=== PATIENT | male | born 1960 | race Caucasian/White ===

== ENCOUNTER 2021-03-23 16:25 | Emergency (ER) | payer OTHER ==
[~2021-03-23] VITALS: Ht 182.9 cm; Wt 70.3 kg
[2021-03-23 17:18] LABS: ABSOLUTE NEUTROPHILS 7.3 thou/uL (1.4-8.2); BASOPHILS 0.5 % (0.0-2.0); EOSINOPHILS 0.5 % (0.0-3.0); HEMATOCRIT 46.3 % (42.0-52.0); LYMPHOCYTES 19.6 % (24.0-44.0); MCH 34.2 pg (26.0-34.0); MCHC 34.6 g/dL (28.0-37.0); MCV 98.9 fL (80.0-100.0); MONOCYTES 4.5 % (1.0-8.0); PLATELET COUNT 246 thou/uL (150-400); POLYS 74.9 % (36.0-66.0); RBC 4.69 mil/uL (4.50-6.00); RDW 12.8 % (10.5-14.5); WBC 9.8 thou/uL (4.0-11.0)
[2021-03-23 17:27] LABS: CALCIUM 8.9 mg/dL (8.5-10.1); POTASSIUM 4.6 mmol/L (3.5-5.1)
[2021-03-23 17:33] LABS: ALBUMIN 3.9 g/dL (3.4-5.0); TOTAL BILIRUBIN 0.9 mg/dL (0.2-1.0); TOTAL PROTEIN 7.9 g/dL (6.4-8.2)
[2021-03-23] MEDS ORDERED: AMOXICILLIN500 M1 PO (18:38)
[2021-03-23] MEDS ORDERED: BACTRIM DS TAB1 EACH PO (18:38)
[2021-03-23 18:52] VITALS: BP 119/70
== END 2021-03-23 18:53 ==
LOC: ER 16:25
PROVIDERS: Nurse Practitioner
DX: L03.213 Periorbital cellulitis (principal); I11.0 Hypertensive heart disease with heart failure; I50.9 Heart failure, unspecified; J44.9 Chronic obstructive pulmonary disease, unspecified

== ENCOUNTER 2021-07-30 07:18 | Emergency (ER) | payer OTHER ==
[~2021-07-30] VITALS: Ht 182.9 cm; Wt 68.0 kg
--- NOTE | ~2021-07-30 | EMS ---
[facility] [address] [place] [address] EMS Patient Care Report Name: MONA WESLEY Room #: DEP KARMEN Larios#: [id number] Admission: 07/30/21 Attend Phys: Discharge: 07/30/21 Date of : 62 Report #: [id number] THIS REPORT FOR: //name// Report Transmitted: 08/01/2021 08:09 EMS Care Summary [place], [place]/[facility] Incident [id number] @ 07/30/2021 06:41 Incident Location [address] [place] [id number] Patient QIAN WESLEY Male, 60 Years 1960 Patient Address [address] [place], [place] [id number] Patient History Congestive Heart Failure (CHF),Chronic Obstructive Pulmonary Disease (COPD),Hypertension (HTN),Gastric Ulcer,IV Drug Use/Abuse,Depression,Anxiety,Post Traumatic Stress Disorder (PTSD),Enlarged prostate, Patient Allergies No known allergies, Patient Medications Other, Chief Complaint I feel weak, dizzy and nauseated Disposition Transported No Lights/[place] Dispatch Reason Sick Person Transported To [facility] Narrative Called to the bus stop. Upon arrival, pt was LUGO x 3 sitting at the bus stop [facility] [address] [place] [address] EMS Patient Care Report Name: MONA WESLEY Room #: DEP Ric#: [id number] Admission: 07/30/21 Attend Phys: Discharge: 07/30/21 Date of : 62 Report #: [id number] c/o weak, dizzy, nausea and SOB w/exertion. He said he was going to take the bus to the hospital but didn't think he could make it. He was moved to the EMS cot and loaded into the ambulance w/o incident. Vitals obtained. 4 & 12 lead obtained. 18g IV SL. D-stick. Vitals repeated. En route; no significant changes. RR to the ER. Arrived: pt taken to ER and moved to their bed w/o incident. Pt care & report to ER staff. Initial Vitals @06:51P: 100,R: 16,BP: 137/78,Pain: 0/10,GCS: 15,CO: 6,SpO2: 96,Revised Trauma: 12, @06:56P: 85,IN Suspected: false @07:04P: 87,R: 16,BP: 138/82,Pain: 0/10,GCS: 15,Glucose: 83,CO: 8,SpO2: 98,Revised Trauma: 12,IN Suspected: false Assessments @06:47MENTAL:Person Oriented,Event Oriented,Time Oriented,Place Oriented,SKIN:HEENT:LUNG SOUNDS:General: Nausea,ABDOMEN:General: Nausea,PELVIS//GI:EXTREMITIES:Left Arm: No Abnormalities,Right Arm: No Abnormalities,Left Leg: No Abnormalities,Right Leg: No Abnormalities,PULSE:Radial: 2+ Normal,NEURO:No Abnormalities, Impression Acute Respiratory Distress (Dyspnea) Procedures @06:5612-Lead ECGResponse: UnchangedSucceeded@06:50StretcherResponse: Unchanged@06:553-Lead ECGResponse: UnchangedSucceeded@06:59Saline Lock 8cc (18 ga) Site: Forearm-LeftResponse: UnchangedSucceeded@06:48ALS AssessmentResponse: UnchangedSucceeded@06:57Saline Lock cc (18 ga) Site: Antecubital-LeftResponse: UnchangedFailed Timeline 06:40,Call Received 06:40,Dispatch Notified 06:41,Dispatched 06:43,En Route 06:46,On Scene 06:47,At Patient 06:48,ALS Assessment,Response: UnchangedSucceeded, 06:50,Stretcher,Response: Unchanged 06:51,BP: 137/78 M,PULSE: 100,RR: 16 R,SPO2: 96 Ox,ETCO2: ,BG: ,PAIN: 0,GCS: 15, 06:55,3-Lead ECG,Response: UnchangedSucceeded, 06:56,12-Lead ECG,Response: UnchangedSucceeded, 06:56,BP: / M,PULSE: 85,RR: R,SPO2: Ox,ETCO2: ,BG: ,PAIN: ,GCS: , 06:57,Saline Lock cc 18 ga Site: Antecubital-Left,Response: UnchangedFailed, [facility] [address] [place] [address] EMS Patient Care Report Name: MONA WESLEY Room #: DEP KARMEN Larios#: [id number] Admission: 07/30/21 Attend Phys: Discharge: 07/30/21 Date of : 62 Report #: [id number] 06:59,Saline Lock 8cc 18 ga Site: Forearm-Left,Response: UnchangedSucceeded, 07:04,BP: 138/82 M,PULSE: 87,RR: 16 R,SPO2: 98 Ox,ETCO2: ,B,PAIN: 0,GCS: 15, 07:14,Depart Scene 07:14,At Destination 07:29,Call Closed Disclaimer v1.1 Copyright 2020 [employer] This EMS Care Summary contains data elements from the applicable legal record (which may be displayed differently). It is designed to provide pertinent information for the following purposes: continuity of care, clinical quality, and state data reporting. The complete legal record is available to ED staff and administrators of the receiving hospital in [facility]'s Patient Tracker. All data is provided "as is."
[~2021-07-30 07:18] MED LIST: AMOXICILLIN500 M1 PO; BACTRIM DS TAB1 EACH PO
[2021-07-30 08:27] LABS: ABSOLUTE NEUTROPHILS 3.6 thou/uL (1.4-8.2); BASOPHILS 0.7 % (0.0-2.0); EOSINOPHILS 4.9 % (0.0-3.0); HEMATOCRIT 39.8 % (42.0-52.0); HEMOGLOBIN 13.1 gm/dL (14.0-18.0); MCH 33.6 pg (26.0-34.0); MCHC 32.9 g/dL (28.0-37.0); MCV 102.1 fL (80.0-100.0); MONOCYTES 6.5 % (1.0-8.0); PLATELET COUNT 236 thou/uL (150-400); POLYS 52.9 % (36.0-66.0); RDW 13.3 % (10.5-14.5); WBC 6.8 thou/uL (4.0-11.0)
[2021-07-30 08:54] LABS: ALBUMIN 3.3 g/dL (3.4-5.0); ANION GAP 8 mmol/L (7-16); BUN 15 mg/dL (7-18); CALCIUM 8.7 mg/dL (8.5-10.1); CHLORIDE 112 mmol/L (98-107); CO2 29 mmol/L (21-32); CREATININE 0.9 mg/dL (0.7-1.3); DIRECT BILIRUBIN < 0.1 mg/dL (<0.1-0.2); GLUCOSE 80 mg/dL (74-106); LIPASE 140 U/L (73-393); POTASSIUM 3.8 mmol/L (3.5-5.1); SGOT 23 U/L (15-37); SGPT 25 U/L (16-63); SODIUM 149 mmol/L (136-145); TOTAL BILIRUBIN 0.3 mg/dL (0.2-1.0); TOTAL PROTEIN 6.7 g/dL (6.4-8.2)
[2021-07-30 10:52] VITALS: BP 117/72
--- NOTE | 2021-07-31 12:28 | EKG ---
[address] [place] [address] ELECTROCARDIOGRAM REPORT Name: MONA WESLEY Room #: DEP KARMEN Larios#: [id number] Admission: 07/30/21 Attend Phys: Discharge: 07/30/21 Date of : 62 Report #: [id number] [facility] ED Test Date: 2021-07-30 Test Time: 07:45:27 Pat Name: MONA WESLEY Department: Room: Gender: [employer]: : 1960 Requested By: Nathan Herrera Order Number: [id number] MD: Max Hart Measurements Intervals [place] Rate: 91 P: 78 CO: 153 QRS: 17 QRSD: 106 T: 76 QT: 383 QTc: 472 Interpretive Statements Sinus rhythm Normal tracing No previous ECG available for comparison Electronically Signed On 07-31-2021 12:28:07 CDT by Max Hart [email or web address] <ELECTRONICALLY SIGNED> By: Max Hart MD, [facility] 07/31/21 1228 0745 0745 Max Hart MD, FACC /EPI
== END 2021-07-30 10:54 | disposition home or self-care (01) ==
LOC: ER 07:18
PROVIDERS: Student in an Organized Health Care Education/Training Program
DX: R07.89 Other chest pain (principal); Z20.822 Contact with and (suspected) exposure to COVID-19; J44.9 Chronic obstructive pulmonary disease, unspecified; I11.0 Hypertensive heart disease with heart failure; I50.9 Heart failure, unspecified